=== PATIENT | male | born 2000 | race Hispanic/Latino ===

== ENCOUNTER 2021-01-11 14:58 | Emergency (ER) | payer SELFPAY ==
[2021-01-11] MEDS ORDERED: IBUPROFEN 600 MG TABLET ONE (15:31)
[2021-01-11 15:57] LABS: RAPID GROUP A STREP NEGATIVE (NEGATIVE)
== END 2021-01-11 16:24 | disposition home or self-care (01) ==
LOC: EDBD 14:58 → EDH 14:58
DX: J02.9 Acute pharyngitis, unspecified (principal); R05 Cough; R50.9 Fever, unspecified; R53.1 Weakness; Z20.822 Contact with and (suspected) exposure to COVID-19; Z72.0 Tobacco use
CPT/HCPCS: 87426; 87804 ×2; 87880; 99283; U0003